=== PATIENT | male | born 1955 | race Native Hawaiian/Other Pacific Islander ===

== ENCOUNTER 2017-03-08 00:26 | Outpatient (CLI) | payer OTHER ==
[2017-03-08] MEDS ORDERED: ALLERGY REL10 MG PO (02:22)
[2017-03-08] MEDS ORDERED: OMEPRAZOLE20 M1 PO (02:23)
[2017-03-08] MEDS ORDERED: REMERON SOLTAB30 MG PO (02:24)
[2017-03-08] MEDS ORDERED: LIPITOR80 MG PO (02:25)
[2017-03-08] MEDS ORDERED: DICL75TA4 PO (02:27)
[2017-03-08] MEDS ORDERED: MULTIVITAMI1 PO (02:29)
[2017-03-08] MEDS ORDERED: GAS-X80 MG PO (02:30)
[2017-03-08] MEDS ORDERED: CETIRIZINE10 MG PO (02:30)
== END 2017-03-08 00:41 | disposition short-term general hospital (02) ==
LOC: AMB 00:26
DX: R41.82 Altered mental status, unspecified (principal)
CPT/HCPCS: A0425; A0429